=== PATIENT | male | born 1950 | race Caucasian/White ===

== ENCOUNTER 2021-03-17 10:47 | Inpatient (IN) | payer MEDICARE, MEDICAID ==
[~2021-03-17] VITALS: Ht 182.9 cm; Wt 178.6 kg
[~2021-03-17 10:47] MED LIST: ACETAMINOPHEN325 M1 PO; BISACODYL SUPP10 MG RE; COLACE 100 MG100 MG PO; FLEET ENEMA118 ML RC; MOM PO; NOHOMEMEDICATIONS; NORCO 5-325 TA1 EACH PO; NORVASC 5 MG TAB5 MG PO
[2021-03-17 10:50] VITALS: BP 115/66
[2021-03-17 11:15] LABS: ABSOLUTE BASOPHILS 0.1 thou/uL (0.0-0.2); ABSOLUTE EOSINOPHILS 0.1 thou/uL (0.0-0.7); ABSOLUTE LYMPHOCYTES 1.4 thou/uL (0.8-5.3); ABSOLUTE MONOCYTES 0.7 thou/uL (0.0-1.2); ABSOLUTE NEUTROPHILS 5.2 thou/uL (1.6-8.1); BASOPHILS 0.8 %; EOSINOPHILS 1.1 %; HEMATOCRIT 46.1 % (42.0-52.0); HEMOGLOBIN 16.2 gm/dL (14.0-18.0); LYMPHOCYTES 18.7 %; MCH 32.1 pg (26.0-34.0); MCHC 35.1 g/dL (28.0-37.0); MCV 91.5 fL (80.0-100.0); MONOCYTES 8.9 %; MPV 8.1 fl. (7.2-11.1); NUCLEATED RBCS 0 /100WBC; PLATELET COUNT* 214 thou/uL (150-400); POLYS 70.5 %; RBC 5.04 mil/uL (4.50-6.00); RDW-CV 12.8 % (10.5-14.5); WBC 7.4 thou/uL (4.0-11.0)
[2021-03-17 11:24] LABS: CALCIUM 9.2 mg/dL (8.5-10.1); POTASSIUM 4.2 mmol/L (3.5-5.1)
[2021-03-17 11:39] LABS: ALBUMIN 3.8 g/dL (3.4-5.0); CK-MB MASS 0.7 ng/mL (<0.5-3.6); MAGNESIUM 2.1 mg/dL (1.8-2.4); TOTAL BILIRUBIN 0.4 mg/dL (<0.1-1.0); TOTAL PROTEIN 7.2 g/dL (6.4-8.2)
[2021-03-17 15:16] VITALS: BP 102/58
--- NOTE | 2021-03-17 15:33 | 2DMMODE ---
[place] [address] 2 D/M-MODE ECHOCARDIOGRAM Name: AJIT RICE Room: [place] [address] ADM IN .R.#: [id number] Admission: 03/17/21 Attend Phys: Saeid Dominguez Discharge: Date of : 50 Date of Service: 03/17/21 1533 Report #: [id number] THIS REPORT FOR: cc: Lucia Bullock Angela Jo RNP Liston, Michael J. MD [facility] ~ APPROVED REPORT Study performed: 03/17/2021 09:31:11 EXAM: Comprehensive 2D, Doppler, and color-flow Echocardiogram Patient Location: Out-Patient BSA: 2.83 HR: 140 bpm BP: 110/80 mmHg Other Information Study Quality: Technically Limited Technically limited study due to body habitus. Indications Dyspnea 2D Dimensions IVSd: 12.26 (7-11mm) LVOT Diam: 22.59 (18-24mm) LVDd: 60.01 mm PWd: 10.62 (7-11mm) Ascending Ao: 33.86 (22-36mm) LVDs: 47.20 (25-40mm) Aortic Root: 31.35 mm Volumes Left Atrial Volume (Systole) LA ESV Index: 37.70 mL/m2 Aortic Valve AoV Peak Armando.: 0.93 m/s AO Peak Gr.: 3.45 mmHg LVOT Max P.73 mmHg AO Mean Gr.: 1.82 mmHg LVOT Mean P.11 mmHg LVOT Max V: 0.83 m/s AO V2 VTI: 14.31 cm LVOT Mean V: 0.47 m/s VIOLETA (VTI): 2.08 cm2 LVOT V1 VTI: 7.44 [place] [address] 2 D/M-MODE ECHOCARDIOGRAM Name: AJIT RICE Room: [address] IN ..#: [id number] Admission: 03/17/21 Attend Phys: Saeid Dominguez Discharge: Date of : 50 Date of Service: 03/17/21 1533 Report #: [id number] MV Decel. Time: 112.87 ms MV PHT: 32.73 ms MVA (PHT): 6.72 cm2 TDI Medial E' Armando.: 0.15 m/s Lateral E' Armando.: 0.11 m/s Pulmonary Valve PV Peak Armando.: 0.94 m/s PV Peak Gr.: 3.54 mmHg Left Ventricle Left ventricle is mildly dilated. There is normal LV segmental wall motion. There is normal left ventricular wall thickness. The left ventricular systolic function is normal. LVEF is 55-60%. This study is not technically sufficient to allow evaluation of the LV diastolic function due to atrial flutter. Right Ventricle Right ventricle is mildly dilated. The right ventricular systolic function is normal. Atria Left atrium is mildly dilated. Right atrium is mildly dilated. Aortic Valve The aortic valve is normal in structure. No aortic regurgitation is present. There is no aortic valvular stenosis. Mitral Valve The mitral valve is normal in structure. There is no mitral valve regurgitation noted. No evidence of mitral valve stenosis. Tricuspid Valve The tricuspid valve is normal in structure. There is no tricuspid valve regurgitation noted. Pulmonic Valve The pulmonary valve is normal in structure. Trace pulmonic regurgitation. Great Vessels The aortic root is normal in size. IVC is normal in size and collapses >50% [place] [address] 2 D/M-MODE ECHOCARDIOGRAM Name: DWAYNEAJIT Raúl Room: [address] IN [facility]#: [id number] Admission: 03/17/21 Attend Phys: Saeid Dominguez Discharge: Date of : 50 Date of Service: 03/17/21 1533 Report #: [id number] Pericardium Trace pericardial effusion. <Conclusion> Left ventricle is mildly dilated. There is normal left ventricular wall thickness. The left ventricular systolic function is normal. LVEF is 55-60%. This study is not technically sufficient to allow evaluation of the LV diastolic function due to atrial flutter. There is normal LV segmental wall motion. Right ventricle is mildly dilated. Left atrium is mildly dilated. Right atrium is mildly dilated. Trace pulmonic regurgitation. IVC is normal in size and collapses >50% with inspiration. <ELECTRONICALLY SIGNED> By: Galen Kuo MD, FACC 03/17/21 1533 1533 1533 Galen Kuo MD, FACC /INF
--- NOTE | 2021-03-17 15:47 | EKG ---
[place] [address] ELECTROCARDIOGRAM REPORT Name: AJIT RICE Room: [place] [address] ADM IN ..#: [id number] Admission: 03/17/21 Attend Phys: Saeid Dominguez Discharge: Date of : 50 Date of Service: 03/17/21 1113 Report #: [id number] THIS REPORT FOR: //name// [facility] ED Test Date: 2021-03-17 Test Time: 11:13:53 Pat Name: AJIT RICE Department: Room: [facility] Gender: M Kier Drier: DAWSON : 1950 Requested By: Dami Dumont Order Number: [id number] MD: Dmitry Chanel Measurements Intervals [place] Rate: 144 P: 88 VA: 119 QRS: 74 QRSD: 119 T: -47 QT: 331 QTc: 513 Interpretive Statements Atrial flutter with 2 1 AV block at a rate of 144 Nonspecific intraventricular conduction delay Low voltage with right axis deviation Possible anteroseptal infarct, old Nonspecific T abnormalities, inferior leads Compared to ECG 07/02/2013 16:26:16 Intraventricular conduction delay now present Right-axis deviation now present Myocardial infarct finding now possible T-wave abnormality now present Electronically Signed On 03-17-2021 15:47:52 CDT by Dmitry Chanel [email or web address] <ELECTRONICALLY SIGNED> By: Dmitry Chanel MD, [facility] 03/17/21 1547 1113 1113 Dmitry Chanel MD, [facility] /EPI
[2021-03-17 17:27] VITALS: BP 105/57
[2021-03-17 18:04] VITALS: BP 119/60
[2021-03-17 18:22] LABS: URINE BILIRUBIN NEGATIVE (Negative); URINE BLOOD NEGATIVE (Negative); URINE CLARITY CLEAR; URINE COLOR YELLOW; URINE GLUCOSE-RANDOM NEGATIVE (Negative); URINE KETONES NEGATIVE (Negative); URINE LEUKOCYTES-REFLEX NEGATIVE (Negative); URINE NITRITE-REFLEX NEGATIVE (Negative); URINE PROTEIN NEGATIVE (Negative); URINE UROBILINOGEN 0.2 E.U./dl (0.2-1.0)
--- NOTE | 2021-03-17 18:29 | NUR ---
PT ARRIVED TO UNIT VIA CART, SBA TO BED AT 1745-BED SIDE REPORT RECIEVED FROM TOBIN RN IN ER- DX: A-FIB- TEST DESIGN ENGINEER PLACED ORDERED, TRACING A-FLUTTER WITH CARDIZEM DRIP NOTED IN PLACE AT 7.5MG PER ER, DRIP INCREASED PER THIS NURSE TO ORDERED DOSE OF 10MG, DEMAR NOTED AT 119/60- PT A&O X4- CONT OF B/B- LCTA, DYSPNEA REPORTED ON EXERTION- ABD SOFT/OBESE/NON-TENDER, BS X4 QUADS- LAST BM REPORTED X2 DAYS AGO- IV NOTED TO LEFT HAND INTACT WITH CARDIAZEM INFUSSING PRESCRIBED- CARIO CONSULT NOTED TO BE COMPLETED IN ER PRIOR TO ADMISSION- ECHO COMPLETED WITH 55-60% LVEF NOTED- 2+ BLE EDEMA NOTED WITH DISCOLORATION- PT DENIES ANY OPEN WOUNDS/SOARS- PT FRIEND JOSE WHOM PT STATES KNOWN PHARAMCY AND MEDICATIONS CURRENLTY TAKEN NOTIFIED PER THIS NURSE FOR UPDATED MEDICATIONS- JOSE REPORTS PT TO NOT BE TAKEN ANY MEDICATIONS TO HERE KNOWLEDGE, SHE WILL CHECK AND CALL BACK WITH UPDATE- PT DENIES ANY C/O PAIN/DISCOMFORT AT THIS TIME- CALL LIGHT AND PERSONAL BELONGINGS WITH IN REACH- ALL NEEDS MET AT THIS TIME
[2021-03-17] MEDS ORDERED: LISINOPRIL10 MG PO (18:49)
[2021-03-17] MEDS ORDERED: HYDROCHLOROTHIA25 M1 PO (18:49)
[2021-03-17 20:00] VITALS: BP 129/64
[2021-03-18] VITALS (14 sets, daily range): BP systolic 87–128; BP diastolic 29–68
--- NOTE | 2021-03-18 01:52 | NUR ---
PT ALERT ORIENTED. [facility] NURSE PRACTITIONER TRACING ST 120S. DILTIAZEM DC PER ORDER. AMBULATING TO BR WITH STAND BY ASSIST. ON RA.
[2021-03-18 04:13] LABS: ABSOLUTE EOSINOPHILS 0.1 thou/uL (0.0-0.7); ABSOLUTE LYMPHOCYTES 1.3 thou/uL (0.8-5.3); ABSOLUTE MONOCYTES 0.7 thou/uL (0.0-1.2); ABSOLUTE NEUTROPHILS 5.2 thou/uL (1.6-8.1); BASOPHILS 0.5 %; EOSINOPHILS 1.2 %; HEMATOCRIT 45.1 % (42.0-52.0); HEMOGLOBIN 15.3 gm/dL (14.0-18.0); LYMPHOCYTES 18.2 %; MCH 31.8 pg (26.0-34.0); MCV 93.7 fL (80.0-100.0); MONOCYTES 9.3 %; MPV 8.4 fl. (7.2-11.1); NUCLEATED RBCS 0 /100WBC; PLATELET COUNT* 203 thou/uL (150-400); POLYS 70.8 %; RBC 4.82 mil/uL (4.50-6.00); RDW-CV 12.8 % (10.5-14.5); WBC 7.4 thou/uL (4.0-11.0)
[2021-03-18 04:30] LABS: ALBUMIN 3.5 g/dL (3.4-5.0); POTASSIUM 4.1 mmol/L (3.5-5.1); TOTAL BILIRUBIN 0.7 mg/dL (<0.1-1.0); TOTAL PROTEIN 6.6 g/dL (6.4-8.2)
[2021-03-18 11:32] LABS: APTT 36.9 Seconds (25.0-31.3); INR 1.1; PROTIME 11.9 Seconds (9.20-11.50)
--- NOTE | 2021-03-18 12:48 | NUR ---
Nutrition: Pt admitted with a-flutter. Consult received for "weight." H/o HTN, autism, OBE. Regular diet ordered. Wt: 397#. Albumin 3.5. Pt stated he eats fruits and veg "when I have them." He has not tried to lose weight. I left wt loss info with him to take home. Otherwise, mild nutrition risk.
--- NOTE | 2021-03-18 16:48 | NUR ---
CM ASSESSMENT: PT A&O. PT RESIDES AT HOME ALONE. PT INFORMS THAT HE IS CURRENTLY ON-SERVICE WITH [employer], BUT COULD NOT RECALL THE NAME. PT INFORMS THAT THE CAREGIVERS ASSIST WITH BATHING, DRESSING, TUNG NUT GROWER, LAUNDRY, COOKING, CLEANING, AND TRANSPORTATION. PT HAS 0 HX OF HH. PT HAS PAST HX OF SNF. PT ALSO INFORMS THAT HE RECIEVES MEALS ON WHEELS. NO CM D/C PLANNING NEEDS ANTICIPATED AT THIS TIME. CM WILL REMAIN AVAILABLE TO ASSIST AND FOLLOW NEEDED.
--- NOTE | 2021-03-18 17:09 | TEE ---
[place] [address] TRANSESOPHAGEAL ECHOCARDIOGRAM Name: AJIT RICE Room: [address] IN [facility]#: [id number] Admission: 03/17/21 Attend Phys: Saeid Dominguez Discharge: Date of : 50 Date of Service: 03/18/21 1709 Report #: [id number] THIS REPORT FOR: cc: Lucia Bullock Angela Jo RNP Liston, Michael J. MD [facility] ~ APPROVED REPORT Study performed: 03/18/2021 15:58:25 EXAM: Transesophageal Echocardiogram Patient Location: In-Patient Room #: [facility] Status: routine BSA: 2.85 HR: 128 bpm BP: 103/61 mmHg Rhythm: Atrial Flutter Indications Atrial Fibrillation Echo Enhancing Agent Indication: Rule out Shunt Agent(s) / Amount(s) Used: Agitated Saline 10 cc Procedure After obtaining informed consent, patient underwent transesophageal echo in the [employer]. Type of Sedation : General Anesthesia Sedation was administered by Anesthesiologist. Sedation start time: 1630 Case end Time: 1638 Sedation was achieved intravenously with: Propofol (250) Echo enhancement indication: R/O Septal defect. Echo enhancement agent administered: Agitated Saline The CORAL was performed without complications. Synchronized Cardioversion acheived with 360 Joules after 1 attempt(s). Rhythm following Synchronized Cardioversion: Normal Sinus Rhythm Throughout the procedure, the blood pressure, pulse oximetry, cardiac rhythm, and rate were monitored. The patient tolerated the procedure without adverse effects. Recovery from conscious sedation was uneventful and [place] [address] TRANSESOPHAGEAL ECHOCARDIOGRAM Name: AJIT RICE Room: [address] IN [facility].#: [id number] Admission: 03/17/21 Attend Phys: Saeid Dominguez Discharge: Date of : 50 Date of Service: 03/18/21 1709 Report #: [id number] Left Ventricle Left ventricle is mildly dilated. There is normal LV segmental wall motion. There is normal left ventricular wall thickness. Left ventricular systolic function is normal. LVEF is 65-70%. Right Ventricle Right ventricle is mildly dilated. The right ventricular systolic function is normal. Atria Left atrium is mildly dilated. No thrombus is visualized in the left atrium or appendage. The interatrial septum is intact with no evidence for an atrial septal defect. Right atrium is mildly dilated. Aortic Valve The aortic valve is normal in structure. No aortic regurgitation is present. There is no aortic valvular stenosis. Mitral Valve The mitral valve is normal in structure. Mild mitral regurgitation. No evidence of mitral valve stenosis. Tricuspid Valve The tricuspid valve is normal in structure. There is no tricuspid valve regurgitation noted. Pulmonic Valve The pulmonary valve is normal in structure. There is no pulmonic valvular regurgitation. Great Vessels The aortic root is normal in size. Pericardium There is no pericardial effusion. <Conclusion> Left ventricle is mildly dilated. There is normal left ventricular wall thickness. Left ventricular systolic function is normal. LVEF is 65-70%. There is normal LV segmental wall motion. The interatrial septum is intact with no evidence for an atrial [place] [address] TRANSESOPHAGEAL ECHOCARDIOGRAM Name: AJIT RICE Room: [address] IN .R.#: [id number] Admission: 03/17/21 Attend Phys: Saeid Dominguez Discharge: Date of : 50 Date of Service: 03/18/211708 Report #: [id number] Left atrium is mildly dilated. No thrombus is visualized in the left atrium or appendage. <ELECTRONICALLY SIGNED> By: Galen Kuo MD, FACC 03/18/211708 08 08 Galen Kuo MD, FACC /INF
--- NOTE | 2021-03-18 18:38 | NUR ---
RECEIVED REPORT AROUND 0800. ASSUMED CARE. VS AND ASSESSMENT CHARTED. IV INTACT. HEART MONITOR ATTACHED AT ST/AFLUTTER. PT UP STAND BY ASSIST. NO PAIN THIS SHIFT. CARDIOVERSION THIS SHIFT. NOTES IN CHART. PT IN ST NOW. MEDS GIVEN PER NOV. HOURLY ROUNDING PERFORMED. CALL LIGHT WITH IN REACH. WILL CONTINUE TO MONITOR.
[2021-03-19 08:24] VITALS: BP 129/63
[2021-03-19] MEDS ORDERED: DILTIAZEM 24HR180 M1 PO (09:42)
[2021-03-19] MEDS ORDERED: XARELTO20 MG PO (09:42)
[2021-03-19] MEDS ORDERED: FLECAINIDE ACET50 M1 PO (09:42)
--- NOTE | 2021-03-19 10:45 | NUR ---
ASSUMED CARE OF PT THIS AM AROUND 0715- CARIDAC MONITOR IN PLACE ORDERED, TRACING SR- PT A&O X4, FLAT AFFECT- CONT OF B/B- SBA WITH TRANSFERS FOR SAFETY- LCTA, DYSPNEA NOTED ON EXERTION- VSS, O2 SAT 94% ON RA- ABD SOFT/OBESE/NON-TENDER, BS X4 QUADS- LAST BM REPORTED X2 DAYS AGO- IV NOTED TO LEFT HAND INTACT AND SL- 3+ BLE EDEMA NOTED WITH DISCOLORATION- PT DENIES ANY C/O PAIN/DISCOMFORT AT THIS TIME- CALL LIGHT AND PERSONAL BELONGINGS WITH IN REACH- ALL NEEDS MET AT THIS TIME
[2021-03-19 11:32] VITALS: BP 93/53
[2021-03-19 12:32] VITALS: BP 93/53
--- NOTE | 2021-03-19 12:37 | NUR ---
PHYSICIAN INFORMS OF PLAN FOR THE PT TO D/C HOME TODAY WITH SELF-CARE. CM RECIEVED A CALL FROM PT'S CAREGIVER WHO INFORMS THAT THE PT WILL NEED TRANSPORTATION HOME. CM INFORMED THAT [facility]SP[facility] CM TO ARRANGE TRANSPORT FOR 1630. CM WILL REMAIN AVAILABLE TO ASSIST AND FOLLOW NEEDED.
--- NOTE | 2021-03-19 14:33 | EKG ---
[place] [address] ELECTROCARDIOGRAM REPORT Name: AJIT RICE Room: [address] ADM IN M.R.#: [id number] Admission: 03/17/21 Attend Phys: Saeid Dominguez Discharge: Date of : 50 Date of Service: 03/18/21 1732 Report #: [id number] THIS REPORT FOR: //name// [facility] Test Date: 2021-03-18 Test Time: 17:32:14 Pat Name: AJIT RICE Department: Room: [address] Gender: M Wrap Turner: ESTEBAN : 1950 Requested By: Isabel Mendes Order Number: [id number] Gladys MD: Dmitry Chanel Measurements Intervals [place] Rate: 107 P: 59 UT: 200 QRS: 57 QRSD: 84 T: -5 QT: 340 QTc: 454 Interpretive Statements Sinus tachycardia Atrial premature complexes in couplets Low voltage, extremity and precordial leads Probable anteroseptal infarct, old Compared to ECG 03/17/2021 11:13:53 Atrial premature complex(es) now present Atrial flutter no longer present Intraventricular conduction delay no longer present Right-axis deviation no longer present T-wave abnormality no longer present Myocardial infarct finding still present Electronically Signed On 03-19-2021 14:33:31 CDT by Dmitry Chanel [email or web address] <ELECTRONICALLY SIGNED> By: Dmitry Chanel MD, [facility] 03/19/21 1433 1732 1732 Dmitry Chanel MD, [facility] /EPI
[2021-03-19 16:10] VITALS: BP 130/76
[2021-03-19 18:56] VITALS: BP 93/53
--- NOTE | 2021-03-20 09:16 | CARD ---
[address] [address] CARDIAC CATH REPORT Name: AJIT RICE Room: [address]#: [id number] Admission: 03/17/21 Attend Phys: Eric Lepe Discharge: 03/19/21 Date of : 50 Report #: [id number] THIS REPORT FOR: cc: Lucia Bullock Angela Jo RNP Liston, Michael J. MD [facility] ~ DOC #: [id number] Galen Kuo MD DATE OF SERVICE: 03/18/2021 PROCEDURE: DC cardioversion. INDICATION: Persistent atrial flutter. DESCRIPTION OF PROCEDURE: After informed consent was obtained, the patient was given propofol for sedation. Once the patient was adequately sedated, a transesophageal echocardiogram was performed showing no evidence of intracardiac thrombus. The patient underwent a DC cardioversion with a single biphasic shock of 360 joules converting him from atrial flutter to normal sinus rhythm. The patient tolerated the procedure well without complication. The patient was returned to his room in stable condition. IMPRESSION: 1. Persistent atrial flutter. 2. Transesophageal-guided cardioversion to normal sinus rhythm. MD KARLIE [email or web address] <ELECTRONICALLY SIGNED> By: Galen Kuo MD, [facility] 03/20/21 0916 1540 0159[facility] Cent[facility] Kuo MD, SARAH /nt
== END 2021-03-19 18:50 | disposition home or self-care (01) | DRG 309 ==
LOC: M.TBA-ER 11:19 → M.2W 11:19
PROVIDERS: Family Medicine; Internal Medicine Cardiovascular Disease; ADMIT Internal Medicine; ATTEND Internal Medicine
PROC: 5A2204Z Restoration of Cardiac Rhythm, Single (ICD-10-PCS; principal; 2021-03-18)
PROC: B24BZZ4 Ultrasonography of Heart with Aorta, Transesophageal (ICD-10-PCS; principal; 2021-03-18)
DX: I48.92 Unspecified atrial flutter (principal); D68.9 Coagulation defect, unspecified; F84.0 Autistic disorder; J98.11 Atelectasis; Z68.43 Body mass index [BMI] 50.0-59.9, adult; Z60.2 Problems related to living alone; E66.9 Obesity, unspecified; Z20.822 Contact with and (suspected) exposure to COVID-19; I89.0 Lymphedema, not elsewhere classified; Z79.899 Other long term (current) drug therapy

== ENCOUNTER → 2021-04-24 | Outpatient (CLI) | payer MEDICARE, MEDICAID ==
[~2021-04-24] MED LIST changes: +DILTIAZEM 24HR180 M1 PO; +FLECAINIDE ACET50 M1 PO; +HYDROCHLOROTHIA25 M1 PO; +LISINOPRIL10 MG PO; +XARELTO20 MG PO
[2021-04-24 15:05] LABS: CALCIUM 8.6 mg/dL (8.5-10.1); CREATININE 1.2 mg/dL (0.6-1.3); POTASSIUM 3.9 mmol/L (3.5-5.1)
== END ==
LOC: M.LAB 14:36
PROVIDERS: ATTEND Nurse Practitioner
DX: I48.92 Unspecified atrial flutter (principal)

== ENCOUNTER → 2021-05-05 | Outpatient (CLI) | payer MEDICARE, MEDICAID ==
[2021-05-05] VITALS (11 sets, daily range): BP systolic 139–149; BP diastolic 70–82
[2021-05-05 13:42] LABS: HEMATOCRIT 46.3 % (42.0-52.0); HEMOGLOBIN 15.4 gm/dL (14.0-18.0); MCH 30.7 pg (26.0-34.0); MCHC 33.3 g/dL (28.0-37.0); MCV 92.1 fL (80.0-100.0); MPV 8.2 fl. (7.2-11.1); RBC 5.03 mil/uL (4.50-6.00); RDW-CV 13.1 % (10.5-14.5); WBC 7.7 thou/uL (4.0-11.0)
[2021-05-05 13:55] LABS: CALCIUM 8.6 mg/dL (8.5-10.1); CREATININE 1.1 mg/dL (0.6-1.3); POTASSIUM 3.8 mmol/L (3.5-5.1)
[2021-05-05 14:00] LABS: ALBUMIN 3.6 g/dL (3.4-5.0); TOTAL BILIRUBIN 0.6 mg/dL (<0.1-1.0); TOTAL PROTEIN 6.9 g/dL (6.4-8.2)
--- NOTE | 2021-05-05 14:12 | EKG ---
[place] [address] ELECTROCARDIOGRAM REPORT Name: RICEAJIT Room: [facility]#: [id number] Admission: 05/05/21 Attend Phys: Galen Kuo, Discharge: Date of : 50 Date of Service: 05/05/21 1316 Report #: [id number] THIS REPORT FOR: //name// [facility] Test Date: 2021-05-05 Test Time: 13:16:51 Pat Name: AJIT RICE Department: Room: Gender: Bench Grinder: : 1950 Requested By: Galen Kuo Order Number: [id number] Reading MD: Dominick Goldsmith Measurements Intervals [place] Rate: 110 P: 210 GA: 185 QRS: 41 QRSD: 92 T: 6 QT: 344 QTc: 466 Interpretive Statements atrial flutter septal q waves Low voltage, precordial leads Repol abnrm, severe global ischemia (LM/MVD) Compared to ECG 03/18/2021 17:32:14 Early repolarization now present Possible ischemia now present Sinus tachycardia no longer present Electronically Signed On 05-05-2021 14:12:07 CDT by Dominick Goldsmith [email or web address] <ELECTRONICALLY SIGNED> By: Dominick Goldsmith MD, FACC 05/05/21 1412 1316 1316 Dominick Goldsmith MD, [facility] /EPI
--- NOTE | 2021-05-14 07:50 | EKG ---
[place] [address] ELECTROCARDIOGRAM REPORT Name: RICEAJIT Room: [facility]#: [id number] Admission: 05/05/21 Attend Phys: Galen Kuo, Discharge: Date of : 50 Date of Service: 05/05/21817 Report #: [id number] THIS REPORT FOR: //name// [facility] Test Date: 2021-05-05 Test Time: 08:18:54 Pat Name: AJIT RICE Department: Room: Gender: Shoe Planner: : 1950 Requested By: Galen Kuo Order Number: [id number] Reading MD: Galen Kuo Measurements Intervals [place] Rate: P: [place]: QRS: QRSD: T: QT: QTc: Interpretive Statements Sinus rhythm with first-degree AV block Delayed R wave progression Low voltage precordial leads Abnormal EKG Electronically Signed On 05-14-2021 7:50:16 CDT by Galen Kuo [email or web address] <ELECTRONICALLY SIGNED> By: Galen Kuo MD, [facility] 05/14/21 075 7 7 Galen Kuo MD, [facility] /EPI
--- NOTE | 2021-05-14 13:14 | CARD ---
[place] [address] CARDIAC CATH REPORT Name: AJIT RICE Room: [facility]#: [id number] Admission: 05/05/21 Attend Phys: Galen Kuo MD Discharge: Date of : 50 Report #: [id number] THIS REPORT FOR: cc: Lucia Bullock Angela Jo RNP Liston, Michael J. MD [facility] ~ cc: ALEJANDRINA Haley DATE OF SERVICE: 05/05/2021 PROCEDURE: Direct current cardioversion. INDICATION: Persistent atrial flutter. DESCRIPTION OF PROCEDURE: After informed consent was obtained, the patient was brought to the cardiac holding area. Initial EKG showed persistent atrial flutter. After adequate sedation, the patient was cardioverted with a single biphasic shock of 300 joules to sinus rhythm. The patient tolerated the procedure well without complication. IMPRESSION: 1. Persistent atrial flutter. 2. Successful direct current cardioversion to normal sinus rhythm. <ELECTRONICALLY SIGNED> By: Galen Kuo MD, FACC 05/14/21 1314 1708 01[facility] Centerbrandan Kuo MD, FACC /nt
== END | disposition home or self-care (01) ==
LOC: M.CL 12:17
PROVIDERS: ATTEND Internal Medicine Cardiovascular Disease
DX: I48.19 Other persistent atrial fibrillation (principal)